=== PATIENT | female | born 1985 | race Caucasian/White ===

== ENCOUNTER 2020-08-23 08:58 | Outpatient (CLI) | payer OTHER, SELFPAY ==
[2020-08-23 12:48] LABS: Free T4 Free Thyroxine 1.31 ng/mL (0.78-2.19)
== END 2020-08-23 08:59 | disposition home or self-care (01) ==
LOC: ANHLAB 09:00
PROVIDERS: PCP Physician Assistant; Visit Provider Internal Medicine Endocrinology, Diabetes & Metabolism
DX: E03.9 Hypothyroidism, unspecified (principal); E06.3 Autoimmune thyroiditis
CPT/HCPCS: 36415; 84439; 84443

== ENCOUNTER 2021-02-21 08:29 | Outpatient (CLI) | payer OTHER, SELFPAY ==
[2021-02-21 17:24] LABS: Free T4 Free Thyroxine 1.39 ng/mL (0.78-2.19)
== END 2021-02-21 08:30 | disposition home or self-care (01) ==
LOC: ANHWCLAB 08:33
PROVIDERS: PCP Physician Assistant; Visit Provider Internal Medicine Endocrinology, Diabetes & Metabolism
DX: E03.9 Hypothyroidism, unspecified (principal)
CPT/HCPCS: 36415; 84439; 84443

== ENCOUNTER 2021-04-04 09:52 | Outpatient (CLI) | payer OTHER, SELFPAY ==
[2021-04-04 17:01] LABS: Thyroid Stimulating Hormone 0.089 uIU/mL (0.465-4.680)
[2021-04-06 07:43] LABS: Triiodothyronine T3 Free 3.5 pg/mL (2.3-4.2)
== END 2021-04-04 09:53 | disposition home or self-care (01) ==
LOC: ANHWCLAB 09:54
PROVIDERS: PCP Physician Assistant; Visit Provider Internal Medicine Endocrinology, Diabetes & Metabolism
DX: E04.9 Nontoxic goiter, unspecified (principal); E03.8 Other specified hypothyroidism; E06.3 Autoimmune thyroiditis
CPT/HCPCS: 36415; 84439; 84443; 84481

== ENCOUNTER 2022-01-22 08:48 | Outpatient (CLI) | payer OTHER, SELFPAY ==
[2022-01-22 09:20] LABS: Hematocrit 32.8 % (37.0-47.0); Hemoglobin 10.5 g/dL (12.0-15.0); Immature Platelet Fraction Pct 24.7 % (0.9-11.2); Mean Corpuscular Hemoglobin 26.2 pg (26-34); Mean Corpuscular Volume 81.8 fl (80-100); Mean Platelet Volume 13.3 fl (7.4-10.4); Platelet Count Result 132 k/mm3 (150-375); Red Blood Count 4.01 M/mm3 (4.2-5.4); Red Cell Distribution Width 14.6 % (11.5-14.5); White Blood Count 7.5 K/mm3 (4.5-10.0)
[2022-01-22 17:16] LABS: Rapid Plasma Reagin Non-Reactive (NonReactive)
== END 2022-01-22 08:49 | disposition home or self-care (01) ==
LOC: ANHLAB 08:53
PROVIDERS: PCP Physician Assistant; Visit Provider Obstetrics & Gynecology
DX: Z34.93 Encounter for supervision of normal pregnancy, unspecified, third trimester (principal); Z3A.00 Weeks of gestation of pregnancy not specified
CPT/HCPCS: 36415; 85027; 85055; 86592; 86850; 86900; 86901

== ENCOUNTER 2022-01-23 05:20 | Inpatient (IN) | payer OTHER, SELFPAY ==
--- NOTE | 2022-01-09 14:05 | PC.NURSE ---
Verified with OR schedule and patient. C/s on 01/23/2022 @ 8529 Pt states also having bilateral tubal ligation -- Consent signed. Patient given requisition for preop lab draw.
--- NOTE | 2022-01-22 06:41 | PM.IMHP ---
H&P: HPI History of Present Illness Date/Time: 01/22/22 06:41 Chief Complaint: Term with previous section Narrative: This 36-year-old multipara admitted at term for repeat section. Her has been remarkable PMFSH Past Medical History Medical History Hypothyroidism Family History Family History Mother Depression Hypertension Father Hypertension Sibling Patient's brother is in good health Other Family history of Alzheimer's disease Family history of hypercholesterolemia Family history of lung disease Family history of malignant neoplasm of breast in first degree relative Social History Social History Smoking status: Never smoker Alcohol intake: current Substance use: never Substance use type: does not use Spiritual care concerns: No Meds Home Medications and Allergies Home Medications Medication Instructions Recorded Confirmed Type levothyroxine 175 mcg tablet See Rx Instructions PO .COMPLEX 06/01/21 Rx #120 tabs prenat.vits,donna,gci-jyzp-ajrim 1 tablet PO DAILY 01/09/22 01/09/22 History Allergies Allergy/AdvReac Type Severity Reaction Status Date / Time No Known Allergies Allergy Verified 01/09/22 13:38 Exam : External Female Exam: normal external appearance Speculum Exam - Vagina: normal appearance of the vagina Speculum Exam - Cervix: normal appearance of the cervix Bimanual exam- vagina & uterus: enlarged (Soft gravid uterus) Bimanual Exam- Adnexa, other: normal adnexae Assessment and Plan Assessment and plan (1) Hypothyroidism (acquired): Code(s): E03.9 - Hypothyroidism, unspecified Status: Acute (2) Term : Code(s): Z34.90 - Encounter for supervision of normal , unspecified, unspecified trimester Status: Acute (3) Previous section: Code(s): Z98.891 - History of uterine scar from previous surgery Status: Acute Plan Repeat low-transverse section
[2022-01-23] VITALS (48 sets, daily range): BP systolic 102–135; BP diastolic 46–88; PULSE 54–104; RESP 14–18; TEMP 35.9–36.6; O2SAT 87–100; BMI 26.0
[2022-01-23] MEDS: LACTATED RINGERS 1,000 ML 125 ML IV CONT ×2 (06:13→07:00)
--- NOTE | 2022-01-23 06:19 | LDADM ---
This patient, Hina Madrigal, was admitted to Labor/Delivery/Recovery 120 on 01/23/22 at 05:20. Plans for labor, pain management and were discussed with patient. Patient/family oriented to hospital policies and general routines including ID bracelet, bed and alarms, visiting hours, pain management, procedures, bathroom and other care routines, personal items, smoking policy, room service/diet and guest tray routines, infant security routines, and visiting hours. Patient/Family are encouraged to report perceived risks to care and to ask questions if they do not understand what they are told or what they should do. See OBIX for further documentation.
--- NOTE | 2022-01-23 06:29 | WPDHPUPDATE1 ---
History and Physical Update Update Date/Time: 01/23/22 06:29 History and Physical has been reviewed, including an updated exam of the patient. There are NO changes in the patient's condition. Risks, benefits, and alternatives have been discussed and questions answered. Patient agrees to proceed with procedure.
[2022-01-23] MEDS: ONDANSETRON INJ 4 MG/2 ML VIAL IV PUSH (06:56)
--- NOTE | 2022-01-23 06:57 | WPDANESEPPF ---
Anes - Initial Pre Proc Eval Procedure: Operation Date: 01/23/22 07:30 Proposed Procedures p Repeat Section with Bilateral Tubal Ligation - Kailash Islas MD Date/Time: 01/23/22 06:57 Surgeon: Kailash Islas MD Pre Op Diagnosis: section Patient Data Age: 36 Gender: F Height: 1.65 m Weight: 71 kg Last Vital Signs Pulse 66 01/23/22 06:46 BP 135/82 01/23/22 06:46 Pulse Ox 100 01/23/22 06:56 O2 Del Method Room Air 01/23/22 06:17 Allergies Allergy/AdvReac Type Severity Reaction Status Date / Time No Known Allergies Allergy Verified 01/09/22 13:38 Home Medications Medication Instructions Recorded Confirmed Type levothyroxine 175 mcg tablet See Rx Instructions PO .COMPLEX 06/01/21 01/23/22 Rx #120 tabs prenat.vits,donna,hoj-bqvx-dxmvt 1 tablet PO DAILY 01/09/22 01/09/22 History hydrocodone 5 mg-acetaminophen 325 1 tablet PO Q4H PRN pain #30 tabs 01/23/22 Rx mg tablet Patient hx anesthesia problems: none Family hx anesthesia problems: none Results Review: All pre-operative results and documents have been reviewed as part of the pre-operative evaluation. [facility] Past Medical History Medical History Hypothyroidism Family History Family History Mother Depression Hypertension Father Hypertension Sibling Patient's brother is in good health Other Family history of Alzheimer's disease Family history of hypercholesterolemia Family history of lung disease Family history of malignant neoplasm of breast in first degree relative Social History Social History Smoking status: Never smoker Alcohol intake: current Substance use: never Substance use type: does not use Spiritual care concerns: No Anes - Eval Final PreProcedure Day of Procedure 01/23/22 06:57 Patient weight: overweight Heart: regular rate and rhythm Lungs: clear to auscultation Airway: Mallampati scale class II Neurological: alert and oriented Last oral intake: >/= 8 hours ASA classification: II Emergent: no Anesthetic plan: proceed Anesthesia type and monitoring: regional spinal and standard monitoring Results Review: All pre-operative results and documents have been reviewed as part of the pre-operative evaluation. Informed Consent: The patient's anesthetic plan and its attendant risks and benefits were discussed with the patient/family/POA. Questions were solicited and answers provided to the satisfaction of the patient/family/POA.
[2022-01-23] MEDS: ceFAZolin 2 GM/D5W 50 ML 2 GM/50 ML BAG IVPB (07:31)
[2022-01-23] MEDS: KETOROLAC 30 MG/ML VIAL (*BKC) IV PUSH ×2 (08:16→14:27)
--- NOTE | 2022-01-23 08:17 | W.PM.PROC2 ---
Procedure Note - Detailed Date of Procedure 01/23/22 Pre-op Diagnosis sectionl/Desires permanent sterilization Post-op Diagnosis Same Procedure Performed repeat low transverse section and bilateral tubal ligation via modified [place] method Surgeon Kailash Islas MD Anesthesia Spinal Indications since 36-year-old multiparous patient at term who desires permanent sterilization with 2 previous section Findings viable male infant with Apgars of 8 and 9 at and 5minutes respectively. Normal-appearing uterus ovaries and tubes Description of Procedure the patient was prepped draped in the normal sterile fashion placed in the supine position. Under excellent spinal anesthetic the abdomen was entered through the previous Pfannenstiel incision. This was progressive layers of fascia. Fascia incised in upward outward fashion bilaterally. Underlying muscles sharply dissected parietal peritoneum below by Mary clamps. This was carried superiorly and inferiorly down the bladder. Bladder blade was placed bladder flap formed a bladder blade returned. A low transverse incision made the head delivered in the JORDAN position. Anterior posterior shoulder delivered spontaneously. Cord clamped x2 and cut passed off the table. Excellent cry was noted. Placenta then delivered intact manually after drying cord blood. After assuring membranes or debris remained in the uterus, the uterus was closed with continuous running 0 Vicryl from lateral edge to lateral edge followed by 2nd imbricating running locking 0 Vicryl from lateral edge to lateral edge. Hemostasis was assured. The right fallopian tube was grasped a good knuckle of tube formed this was free tied with 0 chromic. The peritoneum between pierced and the distal and proximal legs were free tied with 0 chromic. The portion cut passed off as portion right fallopian tube. Hemostasis was assured and attention was turned to the left tube. Left tube was grasped with midportion a good knuckle of tube formed. This was free tied with 0 chromic the peritoneum between pierced. The distal and proximal leg of the knuckle of tube free tied with 0 chromic in the portion between cut and passed off as portion of left fallopian tube. Hemostasis was assured and the uterine incision inspected 1 last time. This was hemostatic and the uterus returned to the abdomen. After removing debris from the pelvis laps removed and accounted for. The fascia closed with continuous running 0 Vicryl from lateral edge to midline bilaterally. Irrigation of subcutaneous layer and the skin closed with 4 Monocryl and glue. QBL was 375. All sponge, needle, instrument counts were correct. There were no immediate complications Estimated Blood Loss 375 Drains No Packing No Pathology None sent Complications No immediate complications Condition Stable Disposition Floor
[2022-01-23] MEDS: OXYTOCIN 30 UNITS/NS 500 ML 30 UNITS/500 ML BAG 125 UNITS IV CONT (09:33)
--- NOTE | 2022-01-23 11:07 | OBPPTRN ---
Patient transferred to post room #285 via stretcher. Support person present. Oriented to unit, room, information board, rooming in, admission packet and security measures. Patient verbalizes understanding.
[2022-01-23] MEDS: HYDROcodone/acetaminophen (*CRX) 5-325 MG TABLET 1 TAB PO ×2 (12:14→19:29)
--- NOTE | 2022-01-23 12:43 | PC.NURSE ---
[id number] Introductions were made, then consulted with patient to assess needs related to . Mother led the conversation with her experience feeding her so far. Mother works well with her and has latched in a non-optimal latch. Mother demonstrated detaching to encouraged effective deep latching with big, open, wide gape. Encouraged understanding of the benefits of skin to skin (unwrapping and placing vertically on her chest), responsive feeding and how to watch for early feeding signs, frequency of feeding on demand about every 8-12 times in 24 hours (every 2-3 hours), milk production, duration of feeding, signs of adequate intake/output and how to record on the feeding sheet. Reviewed positioning and ear, shoulder, hip alignment, supporting the breast, asymmetrical latch (off-center), and leading with the chin with a big open side gape. Infant latched optimally to the left breast in a laid-back position that turned into cross cradle, then mother moved to cradle position. Education given to mother of how to visualize suck/swallow ratios and drinking at the breast. was able to maintain latch without discomfort to mother. Nipple care reviewed with optimal latch and good positioning. Reminding mother of comfort measures of healing with a warm and wet washcloth to rinse breast, then leave open to air-dry as needed. Reviewed good handwashing when or touching the breast/nipples to prevent infection. Resources used to facilitate learning were used with the visual handouts/mom and baby guide. Mother voiced understanding of responsive feedings, stimulating with skin to skin, hand expressed colostrum, talking to to encourage if it has been 2 -3 hours since the start of the last , to call if does not latch or there is discomfort with . Reported to the primary RN.
[2022-01-23] MEDS: DEXTROSE 5%/0.45% SOD CHL 1,000 ML 125 ML IV CONT (14:20)
[2022-01-23] MEDS: DOCUSATE SODIUM 100 MG CAPSULE PO (19:28)
[2022-01-23] MEDS: LORATADINE 10 MG TABLET (19:28)
[2022-01-24] VITALS: BP 99/64; PULSE 65; RESP 18; TEMP 36.6; O2SAT 98
[2022-01-24] MEDS: IBUPROFEN 600 MG TABLET PO ×3 (03:28→19:48)
[2022-01-24] MEDS: HYDROcodone/acetaminophen (*CRX) 5-325 MG TABLET 1 TAB PO ×6 (03:29→22:36)
[2022-01-24] MEDS: SIMETHICONE 80 MG TAB.CHEW PO ×2 (03:31→15:46)
[2022-01-24 03:40] VITALS: BP 105/66; PULSE 71; RESP 18; TEMP 36.5
[2022-01-24 04:34] LABS: Basophils Percent Auto 0.1 % (0.2-1.2); Eosinophils Absolute Auto 0.1 K/mm3 (0-0.3); Eosinophils Percent Auto 0.7 % (0-4.4); Hematocrit 27.4 % (37.0-47.0); Hemoglobin 8.4 g/dL (12.0-15.0); Immature Granulocyte Absolute 0.03 K/mm3 (0.00-0.031); Immature Granulocyte Percent A 0.4 % (0-0.5); Immature Platelet Fraction Pct 23.7 % (0.9-11.2); Lymphocytes Absolute Auto 1.02 K/mm3 (0.9-3.2); Lymphocytes Percent Auto 11.9 % (18.3-44.2); Mean Corpuscular HGB Conc 30.7 g/dl (32-36); Mean Corpuscular Volume 84.8 fl (80-100); Mean Platelet Volume 13.1 fl (7.4-10.4); Monocytes Absolute Auto 0.4 K/mm3 (0.1-0.6); Monocytes Percent Auto 4.7 % (2.6-8.5); Neutrophils Percent Auto 82.2 % (45.5-73.1); Platelet Count Result 113 k/mm3 (150-375); Red Blood Count 3.23 M/mm3 (4.2-5.4); Red Cell Distribution Width 14.6 % (11.5-14.5); White Blood Count 8.6 K/mm3 (4.5-10.0)
--- NOTE | 2022-01-24 07:36 | P.PNOB_ITS ---
OB - PN: Subj Subjective Date/time seen: 01/24/22 07:36 Patient comments: no complaints and pain well controlled baby status: doing well and nursing well OB - PN: Obj Data Labs CBC & Chem 7: 01/24/22 03:36 Labs: Laboratory Results - last 24 hr 01/24/22 03:36 WBC 8.6 RBC 3.23 L Hgb 8.4 L Hct 27.4 L MCV 84.8 MCH 26.0 MCHC 30.7 L RDW 14.6 H Plt Count 113 L MPV 13.1 H Immature Gran % (Auto) 0.4 Neut % (Auto) 82.2 H Lymph % (Auto) 11.9 L [place] % (Auto) 4.7 Eos % (Auto) 0.7 Baso % (Auto) 0.1 L Lymph # (Auto) 1.02 [place] # (Auto) 0.4 Eos # (Auto) 0.1 Baso # (Auto) 0.0 Abs Immat Gran (auto) 0.03 Absolute Neuts (auto) 7.0 H Absolute Nucleated RBC 0.0 Nucleated RBC % 0.0 % Immature Plt Fraction 23.7 H OB - PN A/P Assessment and Plan (1) Previous section: Code(s): Z98.891 - History of uterine scar from previous surgery Status: Acute (2) Term : Code(s): Z34.90 - Encounter for supervision of normal , unspecified, unspecified trimester Status: Acute Plan day: 1 Plan: routine care Time Spent With Patient Time: Total time spent is greater than 50% in coordination of care (as documented) at patient's floor/unit and/or counseling patient: Time with patient: less than 15 minutes
[2022-01-24] MEDS: ONDANSETRON INJ 4 MG/2 ML VIAL IV PUSH (08:15)
[2022-01-24] MEDS: POLYSACCHARIDE IRON COMPLEX 150 MG CAPSULE PO ×2 (08:17→16:35)
[2022-01-24] MEDS: MULTIVIT/MIN/PREN/FOL AC/IRON TABLET 1 TAB PO (08:17)
[2022-01-24] MEDS: DOCUSATE SODIUM 100 MG CAPSULE PO ×2 (08:17→16:35)
[2022-01-24 08:40] VITALS: BP 106/65; PULSE 62; RESP 16; TEMP 36.5; O2SAT 100
--- NOTE | 2022-01-24 11:47 | WPDANLDNPN2 ---
Anes-Prog Note L&D-Neuraxial Date/Time: 01/24/22 11:47 Patient feedback: Patient satisfied with post-operative pain management.
--- NOTE | 2022-01-24 11:48 | WPDANLDPN2 ---
Anes-Prog Note L&D Date/Time: 01/24/22 11:48 Neuro status: Neuro function grossly intact. Vital Signs: Last Vital Signs Temp 36.5 C 01/24/22 08:40 Pulse 62 01/24/22 08:40 Resp 16 01/24/22 08:40 BP 106/65 01/24/22 08:40 Pulse Ox 100 01/24/22 08:40 O2 Del Method Room Air 01/23/22 16:00 Pain score (VAS): 0 I/O: Intake & Output 01/23/22 01/24/22 01/24/22 23:59 07:59 15:59 Intake Total 1240 1000 Output Total 3200 1900 Balance -1960 -900 Patient feedback: Patient satisfied with anesthetic care.
--- NOTE | 2022-01-24 15:39 | PC.NURSE ---
[id number] Mother verbalizes she is able to independently latch with appropriate positioning/alignment. She denies any nipple discomfort and is responsively . is currently meeting outcomes for weight, output, jaundice and feeding frequencies of 8-12 times in 24 hours. Mother declines any additional assistance/education at this time. Mother is encouraged to call for assistance if her doesn?t latch or there is discomfort with latching. Mother states she is confident to continue effectively her at home or when to call for assistance and denies any additional assistance or education at this time. Reinforced understanding of milk production, transition of milk, signs of adequate intake, prevention/relief of engorgement, responsive after visualizing feeding cues, the different methods of stimulating to breastfeed 2-3 hours after the start of the last feeding, community resources, medication information reviewed per [employer] and when to call a provider using the resource of the mom and baby guide/[facility] website. Mother voiced understanding of the education shared. Reported to the primary RN.
[2022-01-24 20:00] VITALS: BP 120/78; PULSE 66; RESP 16; TEMP 36.9; O2SAT 100
[2022-01-25] MEDS: IBUPROFEN 600 MG TABLET PO (05:19)
[2022-01-25] MEDS: HYDROcodone/acetaminophen (*CRX) 5-325 MG TABLET 1 TAB PO ×2 (05:20→09:41)
--- NOTE | 2022-01-25 06:56 | PM.DS ---
DS: Admitting Diagnosis Discharge Date Admitting Diagnosis term / previous section/desires permanent sterilization DS: Discharge Diagnosis Discharge Diagnosis Plan term / previous section/desires permanent sterilization DS: Summary Hospital Course Reason for hospitalization: repeat section tubal ligation Hospital Course: patient was admitted for repeat section and bilateral tubal ligation. Her hospital course was unremarkable. She remained afebrile. She was up, voiding without difficulty, ambulating, generally without complaints. Time Spent with Patient Time attestation: Total time spent providing and/or coordinating discharge services: DS: Data Data Completed and Pending Completed studies during hospitalization: Pending at discharge 01/23/22 08:02 Surgical [PTH] Routine Discharge Plan Discharge Attending physician on discharge: Kailash Hatch Discharging Clinician: Kailash Hatch Patient Disposition: Home, Self-Care Activity: may shower, no straining, may drive after 2 weeks and pelvic rest Diet: heart healthy Wound Care Instructions: follow printed instructions Patient Instructions: Antibiotic Form Stand Alone Forms: General Discharge Information Follow-up/Referrals: Kailash Hatch MD [Physician] - Discharge Medications: New hydrocodone-acetaminophen 5-325 mg tablet 1 tablet PO Q4H PRN (Reason: pain) Qty: 30 0RF Continued #2 Tablet 1 tablet PO DAILY levothyroxine 175 mcg tablet See Rx Instructions PO .COMPLEX Qty: 120 1RF Dose Instruction: Take 1 tablet by mouth once daily Rx Instructions: Take 1 tablet by mouth friday to friday and 2 on friday Date of admission: 01/23/22 05:20 Primary Care Provider: Catrachito Howard Admitting Provider: Kailash Hatch Attending physician on admission: Kailash Hatch Condition: Stable
--- NOTE | 2022-01-25 06:58 | PM.OBPNVD ---
OB - PN: Subj Subjective Date/time seen: 01/25/22 06:58 Patient comments: no complaints, pain well controlled and tolerating diet [place] baby status: doing well and nursing well [place] feeding status: exclusively breast feeding OB - PN: Obj Data Labs CBC & Chem 7: 01/24/22 03:36 OB - PN A/P Assessment and Plan (1) Previous section: Code(s): Z98.891 - History of uterine scar from previous surgery Status: Acute (2) Term : Code(s): Z34.90 - Encounter for supervision of normal , unspecified, unspecified trimester Status: Acute (3) Hypothyroidism (acquired): Code(s): E03.9 - Hypothyroidism, unspecified Status: Acute Plan day: 2 Plan: routine care, discharge home and follow up 6 weeks (4) Time Spent With Patient Time: Total time spent is greater than 50% in coordination of care (as documented) at patient's floor/unit and/or counseling patient: Time with patient: less than 15 minutes
[2022-01-25 08:10] VITALS: BP 116/78; PULSE 70; RESP 18; TEMP 36.8; O2SAT 99
[2022-01-25] MEDS: MULTIVIT/MIN/PREN/FOL AC/IRON TABLET 1 TAB PO (09:37)
[2022-01-25] MEDS: DOCUSATE SODIUM 100 MG CAPSULE PO (09:37)
[2022-01-25] MEDS: POLYSACCHARIDE IRON COMPLEX 150 MG CAPSULE PO (09:37)
[2022-01-25] MEDS: MEASLES,MUMPS,RUBELLA VACCINE 0.5 ML VIAL SUB-Q (09:42)
--- NOTE | 2022-01-25 14:33 | PC.NURSE ---
[id number] Mother led the conversation with her experience and plan to feed her so far and her ability to [independently latch infant optimally without discomfort and continue with the plan of and supplement to feed . Reminded parents to use good handwashing technique to prevent infection. Mother is feeding appropriately for growth of and understands stimulating infant to eat if needed. Infant has had appropriate feedings in the last 24 hours meets the outcomes for weight, output and jaundice at this time. Mother states she is confident to continue to feed her infant at home or when to call for assistance and denies any additional assistance or education at this time. Reinforced understanding of milk production, transition of milk, signs of adequate intake, prevention/relief of engorgement, responsive after visualizing feeding cues, the different methods of stimulating infant to breastfeed 2-3 hours after the start of the last feeding, community resources, medication information reviewed per [employer] and when to call a provider using the resource of the mom and baby guide/[facility] website. Mother voiced understanding of the education shared. Reported to the primary RN.
[2022-01-26 09:07] VITALS: BP 117/81; PULSE 70; RESP 20; TEMP 36.9; O2SAT 98
== END 2022-01-25 12:41 | disposition home or self-care (01) | DRG 785 ==
LOC: ANHLDR 05:25 → ANHOB2 11:15
PROVIDERS: Admitting Provider Obstetrics & Gynecology; PCP Physician Assistant; Visit Provider Obstetrics & Gynecology
PROC: 10D00Z1 Extraction of Products of Conception, Low, Open Approach (ICD-10-PCS; CPT 59514; principal; 2022-01-23 07:30)
DX: O34.211 Maternal care for low transverse scar from previous cesarean delivery (principal); Z37.0 Single live birth; Z3A.39 39 weeks gestation of pregnancy; O99.284 Endocrine, nutritional and metabolic diseases complicating childbirth; E03.9 Hypothyroidism, unspecified; Z30.2 Encounter for sterilization
CPT/HCPCS: 36415; 85025; 85027; 85055; 86592; 86850; 86900; 86901; 88302; 90710; A9270; J0131; J0690; J1885; J2274; J2405; J2590; J7120

== ENCOUNTER 2022-06-24 15:22 | Outpatient (CLI) | payer OTHER, SELFPAY ==
[2022-06-24 16:31] LABS: Free T4 Free Thyroxine 0.95 ng/mL (0.78-2.19)
== END 2022-06-24 15:23 | disposition home or self-care (01) ==
LOC: ANHLAB 15:23
PROVIDERS: Internal Medicine Endocrinology, Diabetes & Metabolism; PCP Physician Assistant; Visit Provider Physician Assistant
DX: E03.9 Hypothyroidism, unspecified (principal)
CPT/HCPCS: 36415; 84439; 84443

== ENCOUNTER 2022-10-16 00:33 | Day surgery (SDC) | payer OTHER, SELFPAY ==
[2022-10-07 13:21] VITALS: BMI 22.7
[2022-10-16 07:25] VITALS: BP 110/68; PULSE 73; RESP 18; TEMP 36.3; O2SAT 100
[2022-10-16] MEDS: LACTATED RINGERS 1,000 ML 150 ML IV CONT (07:33)
--- NOTE | 2022-10-16 08:19 | WPDANESEPPF ---
Anes - Initial Pre Proc Eval Procedure: Operation Date: 10/16/22 08:30 Proposed Procedures p Colonoscopy - Jerson Garces MD Date/Time: 10/16/22 08:19 Surgeon: Jerson Garces MD Pre Op Diagnosis: colitis, gastritis Patient Data Age: 37 Gender: F Height: 1.65 m Weight: 62.5 kg Last Vital Signs Temp 97.4 F L 10/16/22 07:25 Pulse 73 10/16/22 07:25 Resp 18 10/16/22 07:25 BP 110/68 10/16/22 07:25 Pulse Ox 100 10/16/22 07:25 O2 Del Method Room Air 10/16/22 07:25 Allergies Allergy/AdvReac Type Severity Reaction Status Date / Time No Known Allergies Allergy Verified 10/16/22 07:24 Home Medications Medication Instructions Recorded Confirmed Type loperamide 2 mg capsule 2 mg PO .qd PRN Diarrhea 09/06/22 10/07/22 History levothyroxine 175 mcg tablet 175 mcg PO DAILY 10/07/22 10/07/22 History Patient hx anesthesia problems: none Family hx anesthesia problems: none Results Review: All pre-operative results and documents have been reviewed as part of the pre-operative evaluation. [facility] Past Medical History Medical History Hypothyroidism Family History Family History Mother Depression Hypertension Father Hypertension Sibling Patient's brother is in good health Other Family history of Alzheimer's disease Family history of hypercholesterolemia Family history of lung disease Family history of malignant neoplasm of breast in first degree relative Social History Social History Smoking status: Never smoker Alcohol intake: current Drinks per week: 3 Substance use: never Substance use type: does not use Lack of Transportation: No Lack of Food: Never True Current Housing: I Have Housing Concerned About Future Housing: No Difficulty Paying Gas/Electric Bills: No Difficulty Paying for Meds: No Currently Unemployed: No Education: Master's Degree or Higher Difficulty w/ Childcare or Family Care: No Living arrangements: with family Occupation/Education: occupation Spiritual care concerns: No Anes - Eval Final PreProcedure Day of Procedure 10/16/22 08:19 Patient weight: normal Heart: regular rate and rhythm Lungs: clear to auscultation Airway: Mallampati scale class II Neurological: alert and oriented Last oral intake: >/= 8 hours ASA classification: II Emergent: no Anesthetic plan: proceed Anesthesia type and monitoring: general GIVS and standard monitoring Results Review: All pre-operative results and documents have been reviewed as part of the pre-operative evaluation. Informed Consent: The patient's anesthetic plan and its attendant risks and benefits were discussed with the patient/family/POA. Questions were solicited and answers provided to the satisfaction of the patient/family/POA.
--- NOTE | 2022-10-16 08:35 | PM.HPGS ---
History of Present Illness History of Present Illness Consent: Risks, benefits, and alternatives have been discussed and questions answered. Patient agrees to proceed with procedure. Chief complaint: colitis, gastritis Narrative: Hina Madrigal is a 37 year old female here for colonoscopy, had diarrhea since 03/2022 after delivering her baby, also was diagnosed with [place]. Never had colonoscopy Review of Systems Constitutional: Constitutional: Denies headache(s) and Denies weakness Eyes: Eyes: Denies blurry vision ENT: Reports Normal hearing present, Denies headache(s) and Denies neck pain Cardiovascular: Cardiovascular: Denies chest pain and Denies dyspnea Respiratory: Respiratory: Denies dyspnea Gastrointestinal: Gastrointestinal: Reports no additional gastrointestinal complaints Genitourinary: Genitourinary: Denies dysuria Musculoskeletal: Musculoskeletal: Denies neck pain Integumentary/Breasts: Skin/Breast: Denies dry skin Neurologic: Reports Normal hearing present, Denies headache(s) and Denies weakness Psychiatric: Psychiatric: Denies anxiety Endocrine: Endocrine: Denies change in body appearance Hematologic/Lymphatic: Hematologic/Lymphatic: Denies easy bleeding Allergic/Immunologic: Allergic/Immunologic: Denies urticaria PMFSH Past Medical History Medical History (Updated 10/16/22 @ 08:36 by Jerson Garces MD) Diarrhea Hypothyroidism Family History Family History Mother Depression Hypertension Father Hypertension Sibling Patient's brother is in good health Other Family history of Alzheimer's disease Family history of hypercholesterolemia Family history of lung disease Family history of malignant neoplasm of breast in first degree relative Social History Social History Smoking status: Never smoker Alcohol intake: current Drinks per week: 3 Substance use: never Substance use type: does not use Lack of Transportation: No Lack of Food: Never True Current Housing: I Have Housing Concerned About Future Housing: No Difficulty Paying Gas/Electric Bills: No Difficulty Paying for Meds: No Currently Unemployed: No Education: Master's Degree or Higher Difficulty w/ Childcare or Family Care: No Living arrangements: with family Occupation/Education: occupation Spiritual care concerns: No Meds Home Medications and Allergies Home Medications Medication Instructions Recorded Confirmed Type loperamide 2 mg capsule 2 mg PO .qd PRN Diarrhea 09/06/22 10/07/22 History levothyroxine 175 mcg tablet 175 mcg PO DAILY 10/07/22 10/07/22 History Allergies Allergy/AdvReac Type Severity Reaction Status Date / Time No Known Allergies Allergy Verified 10/16/22 07:24 Vital Signs Vital Signs - 24 hr 10/16/22 07:25 Temperature 97.4 F L Pulse Rate 73 Respiratory Rate 18 Blood Pressure 110/68 Pulse Oximetry 100 Oxygen Delivery Room Air Exam Const: General: comfortable and no acute distress HENMT: Face/Nose/Sinus: Normal nares present Eyes: General: appearance normal, both eyes and all related structures Neck: Neck: no JVD Resp: Auscultation: clear to auscultation bilaterally Cardio: Rate: regular rate Rhythm: regular rhythm GI: Inspection: non-distended GI Palp: Yes Soft to palpation Skin: General skin exam: normal color Neuro: General: gait normal Speech: normal speech Extrem: General: normal to inspection Psych: Mental Status: mental status grossly normal Assessment and Plan Assessment and plan (1) Diarrhea: Code(s): R19.7 - Diarrhea, unspecified Status: Acute Assessment and Plan: colonoscopy with random bx
[2022-10-16 09:00] VITALS: BP 95/52; PULSE 73; RESP 20; O2SAT 100
[2022-10-16 09:10] VITALS: BP 100/79; PULSE 72; RESP 17; O2SAT 100
[2022-10-16 09:20] VITALS: BP 105/75; PULSE 70; RESP 20; O2SAT 100
== END 2022-10-16 09:27 | disposition home or self-care (01) ==
PROVIDERS: PCP Physician Assistant; Visit Provider Internal Medicine Gastroenterology
PROC: 0DJD8ZZ Inspection of Lower Intestinal Tract, Via Natural or Artificial Opening Endoscopic (ICD-10-PCS; CPT 45378; principal; 2022-10-16 08:30)
DX: K52.832 Lymphocytic colitis (principal); K64.8 Other hemorrhoids; E03.9 Hypothyroidism, unspecified
CPT/HCPCS: 45380; 88305; J2704; J7120

== ENCOUNTER 2023-12-18 13:27 | Outpatient (CLI) | payer OTHER, SELFPAY ==
--- NOTE | ~2023-12-18 | MMUS_ITS ---
EXAMINATION: MM diagnostic sandy BI w harpreet, US breast BI complete HISTORY: Left breast lump felt by referring physician TECHNIQUE: ML, MLO and CC 3-D tomosynthesis images of both breasts were performed and synthetic 2-D i mages were generated. CAD analysis was submitted and interpreted. High resolution complete bilateral breast ultrasound examination including all 4 quadrants and subareolar area of each breast was perfor med. COMPARISON: None BREAST PARENCHYMAL COMPOSITION: The breasts are heterogeneously dense, which may obscure small masses . FINDINGS: MAMMOGRAPHIC FINDINGS: No suspicious mass or architectural distortion, malignant calcification, skin thickening or retractio n is detected. ULTRASOUND: Right breast: No suspicious mass or shadowing or other significant sonographic abnormality is detecte d. Left breast: 11:30 3 cm from nipple: 2.6 x 1.7 x 2.5 mm cyst 12:00 2 cm from nipple: Well-circumscribed 3.9 x 1.4 x 4.6 mm probable small cyst or benign hypoecho ic lesion without internal vascularity or posterior shadowing. No suspicious mass or shadowing or other significant sonographic abnormalities detected. IMPRESSION: 1. Benign findings 2. Routine annual mammographic screening is recommended BI-RADS Category 2: Benign finding(s). Reviewed, dictated and finalized at location B. IMPRESSION: 1. Benign findings 2. Routine annual mammographic screening is recommended BI-RADS Category 2: Benign finding(s).
== END 2023-12-18 13:28 | disposition home or self-care (01) ==
PROVIDERS: PCP Physician Assistant; Visit Provider Obstetrics & Gynecology
DX: N63.20 Unspecified lump in the left breast, unspecified quadrant (principal); R92.8 Other abnormal and inconclusive findings on diagnostic imaging of breast
CPT/HCPCS: 76641; 77062; 77066; G0279